=== PATIENT | female | born 2000 | race Caucasian/White ===

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

== ENCOUNTER → 2022-06-04 14:00 | Outpatient (BNVA) | payer MEDICAID, SELFPAY | PROVIDERS: PCP Family Medicine; Visit Provider Emergency Medicine | DX: J06.9 Acute upper respiratory infection, unspecified (principal); U07.1 COVID-19 | CPT/HCPCS: 87426 ==

== ENCOUNTER 2022-07-21 16:23 | Emergency (ER) | payer MEDICAID, SELFPAY ==
[2022-07-21 16:28] VITALS: BP 121/62; PULSE 83; RESP 21; TEMP 36.4; O2SAT 96; BMI 25.2
--- NOTE | 2022-07-21 16:41 | CTR_ITS ---
PROCEDURE INFORMATION: Exam: CT Abdomen And Pelvis With Contrast Exam date and time: 07/21/2022 5:59 PM Age: 22 years old Clinical indication: Abdominal pain; Additional info: Abd pain TECHNIQUE: Imaging protocol: Computed tomography of the abdomen and pelvis with contrast. Axial, coronal and sagittal reformatted images were created and reviewed. Radiation optimization: All CT scans at this facility use at least one of these dose optimization techniques: automated exposure control; mA and/or kV adjustment per patient size (includes targeted exams where dose is matched to clinical indication); or iterative reconstruction. Contrast material: OMNIPAQUE 350; Contrast volume: 80 ml; Contrast route: INTRAVENOUS (IV); COMPARISON: CT abdomen pelvis w con* [id number] 09/21/2021 3:33 PM RADIATION DOSE METRICS: Total DLP (mGy-cm): 426.72 FINDINGS: Liver: Unremarkable. Gallbladder and bile ducts: No radiodense gallstones. No biliary ductal dilatation. Pancreas: Unremarkable. Spleen: Unremarkable. Adrenal glands: Normal. No mass. Kidneys and ureters: No mass. No radiodense calculi. No hydronephrosis. Stomach and bowel: No bowel wall thickening. No obstruction. No pneumatosis. Appendix: Normal. Intraperitoneal space: Small amount of mildly complex free pelvic fluid, possibly blood products. No organized fluid collection. No free air. Vasculature: Unremarkable. No aneurysm. Lymph nodes: No pathologically enlarged lymph nodes. Urinary bladder: Unremarkable as visualized. Reproductive: 3.6 x 3.2 cm right adnexal cystic lesion. Bones/joints: No acute osseous abnormality. Soft tissues: Unremarkable. CT/CT abdomen pelvis w con* [id number] IMPRESSION: 1. 3.6 x 3.2 cm right adnexal cystic lesion with a small amount of mildly complex free pelvic fluid, possibly blood products. A ruptured hemorrhagic cyst could produce this appearance. If clinically indicated, pelvic ultrasound may be obtained for further evaluation. 2. Additional findings, as above.
--- NOTE | 2022-07-21 16:43 | W.ED.ABDPA2 ---
HPI - Abdominal Pain General: Chief Complaint: Abdominal Pain Stated Complaint: Sharp pains lower abd Time Seen by Provider: 07/21/22 16:27 Source: patient Mode of arrival: ambulatory Limitations: no limitations History of Present Illness: 22-year-old female states she had sudden onset of right lower quadrant abdominal pain roughly 30 minutes to an hour ago states it severe in nature rates it an 8 out of 10 has some nausea denies any vomiting. She has a history of endometriosis denies any surgical history in the past. She has had no diarrhea denies any vaginal discharge. Associated Symptoms: Denies chills, dysuria and fever(s) Review of Systems Const: Denies: fever(s), chills, body aches or change in appetite Eyes: Denies: blurry vision or eye discomfort ENMT: Denies: throat pain or dental pain Card: Denies: chest pain Resp: Denies: dyspnea GI: Reports: abdominal pain : Denies: dysuria Musc: Denies: neck pain or back pain Skin/Breast: Denies: rash Neuro: Denies: headache(s) Psych: Denies: depression Dominguez/Lymph: Denies: easy bruising All/Imm: Denies: urticaria PFSH ED PFSH: Medical History (Updated 07/21/22 @ 18:56 by Sofía Treadwell MD) Acne vulgaris Surgical History No pertinent past surgical history Family History Family/Other Colon cancer Maternal Aunt Diabetes Paternal and Maternal aunts and uncles Grandmother Cervical cancer Maternal Mother Cervical cancer Thyroid disease Grandfather Hypertension Maternal Thyroid disease Paternal Grandfather Thyroid disease Maternal Denies family history of CAD (coronary artery disease) Clotting disorder Hyperlipidemia Chronic kidney disease (CKD) Bleeding disorder Stroke Social History Smoking and tobacco status: current some day smoker Second hand smoke exposure: No Alcohol intake: never Desire information about alcohol rehabilitation?: No Desire information about substance/drug rehabilitation?: No Physical Exam Const: COMMON NORMALS: no acute distress, patient oriented x3 and healthy appearing HENMT: COMMON NORMALS: normocephalic and atraumatic HEAD & SCALP: normocephalic and atraumatic Eye: COMMON NORMALS: Equal, round and reactive pupils present and EOMs intact bilaterally PUPIL: Yes Equal, round and reactive pupils present Neck/C-Spine: COMMON NORMALS: full ROM and supple Chest: COMMONS NORMALS: normal inspection of the chest and normal palpation of entire chest wall Resp: COMMON NORMALS: normal respiratory effort, No retractions, No use of accessory muscles and clear to auscultation bilaterally AUSCULTATION: clear to auscultation bilaterally Cardio: COMMON NORMALS: regular rate, regular rhythm and No murmurs present (Cardio) RATE: regular rate RHYTHM: regular rhythm GI: COMMON NORMALS: Normal to inspection, nondistended, normoactive bowel sounds present, Soft to palpation and no masses PALPATION: Yes Soft to palpation and Yes Tenderness to palpation present (GI) Details: RLQ Extremity: COMMON NORMALS: normal to inspection and full ROM Neuro: COMMON NORMALS: patient oriented x3, moves all extremities and no focal motor deficits Psych: COMMON NORMALS: mental status grossly normal, Normal thought process present and cooperative THOUGHT PROCESS: Normal thought process present Skin: COMMON NORMALS: no rashes or lesions noted and no wounds GENERAL SKIN EXAM: no rashes or lesions noted Course Vital Signs: Vital signs: Vital Signs Temperature 97.6 F 07/21/22 16:28 Pulse Rate 64 07/21/22 18:25 Respiratory Rate 15 07/21/22 18:39 Blood Pressure 129/68 07/21/22 18:25 Pulse Oximetry 97 07/21/22 18:39 Oxygen Delivery Me thod 07/21/22 18:25 MDM - Abdominal Pain Medical Decision Making Patient presents here with abdominal pain she does have a ruptured ovarian cyst her blood count here is normal her pain is much improved she has no signs of torsion we will get her OB follow-up she is return to the ER if she has worsening pain she understands agrees to plan. Lab Data : 07/21/22 17:00 07/21/22 17:00 Labs/Radiology: Radiology Impressions Abdomen/Pelvis CT 07/21/22 16:41 IMPRESSION: 1. 3.6 x 3.2 cm right adnexal cystic lesion with a small amount of mildly complex free pelvic fluid, possibly blood products. A ruptured hemorrhagic cyst could produce this appearance. If clinically indicated, pelvic ultrasound may be obtained for further evaluation. 2. Additional findings, as above. Laboratory Results WBC 6.9 10^3/uL (4.5-13.0) 07/21/22 17:00 RBC 4.47 10^6/uL (4.1-5.3) 07/21/22 17:00 Hgb 13.5 g/dL (11.5-15.3) 07/21/22 17:00 Hct 40.9 % (37.0-47.0) 07/21/22 17:00 MCV 91.5 fl (81-99) 07/21/22 17:00 MCH 30.2 pg (28.0-34.0) 07/21/22 17:00 MCHC 33.0 g/dL (30.0-36.0) 07/21/22 17:00 RDW 11.4 % (12.1-15.1) L 07/21/22 17:00 Plt Count 251 10^3/cmm (130-400) 07/21/22 17:00 MPV 8.8 fL (7.4-10.4) 07/21/22 17:00 Neut % (Auto) 55.4 % 07/21/22 17:00 Lymph % (Auto) 36.2 % 07/21/22 17:00 Dare % (Auto) 6.7 % 07/21/22 17:00 Eos % (Auto) 1.3 % 07/21/22 17:00 Baso % (Auto) 0.3 % 07/21/22 17:00 Neut # (Auto) 3.81 10^3/uL (1.8-8.0) 07/21/22 17:00 Lymph # (Auto) 2.5 10^3/uL (1.5-6.5) 07/21/22 17:00 Dare # (Auto) 0.5 10^3/uL (0.2-0.9) 07/21/22 17:00 Eos # (Auto) 0.1 10^3/uL (0.0-0.8) 07/21/22 17:00 Baso # (Auto) 0.0 10^3/uL (0.0-0.1) 07/21/22 17:00 Nucleated RBC % (auto) 0 % 07/21/22 17:00 Nucleated RBCs # 0.0 /100WBC 07/21/22 17:00 Sodium 136 mmol/L (136-145) 07/21/22 17:00 Potassium 3.7 mmol/L (3.5-5.1) 07/21/22 17:00 Chloride 102 mmol/L (98-107) 07/21/22 17:00 Carbon Dioxide 23 mmol/L (22-29) 07/21/22 17:00 Anion Gap 14.7 (5-19) 07/21/22 17:00 BUN 12 mg/dL (6-20) 07/21/22 17:00 Creatinine 0.6 mg/dL (0.5-0.9) 07/21/22 17:00 GFR Calculation 127.5 mL/min (90-130) 07/21/22 17:00 Glucose 92 mg/dL (65-115) 07/21/22 17:00 Calculated Osmolality 281 mOsm/kg (285-295) L 07/21/22 17:00 Calcium 9.5 mg/dL (8.5-10.5) 07/21/22 17:00 Total Bilirubin 0.3 mg/dL (0.15-1.2) 07/21/22 17:00 AST 19 U/L (0-32) 07/21/22 17:00 ALT 25 U/L (0-33) 07/21/22 17:00 Alkaline Phosphatase 80 U/L (35-105) 07/21/22 17:00 Total Protein 7.0 g/dL (6.6-8.7) 07/21/22 17:00 Albumin 4.3 g/dL (3.5-5.2) 07/21/22 17:00 Globulin 2.7 g/dL (1.3-4.6) 07/21/22 17:00 Lipase 30 U/L (13-60) 07/21/22 17:00 HCG, Qual Negative (Negative) 07/21/22 17:00 Urine Color Yellow (Yellow) 07/21/22 17:00 Urine Appearance Clear (CLEAR) 07/21/22 17:00 Urine pH 6.0 (5-7) 07/21/22 17:00 Ur Specific [place] 1.025 (1.005-1.030) 07/21/22 17:00 Urine Protein Negative (Negative) 07/21/22 17:00 Urine Glucose (UA) Negative (Normal) 07/21/22 17:00 Urine Ketones Trace (Negative) A 07/21/22 17:00 Urine Blood Negative (Negative) 07/21/22 17:00 Urine Nitrate Negative 07/21/22 17:00 Urine Bilirubin Negative (Negative) 07/21/22 17:00 Urine Urobilinogen 0.2 mg/dL (Negative) 07/21/22 17:00 Ur Leukocyte Esterase Negative (Negative) 07/21/22 17:00 Discharge Plan Discharge Patient Disposition: Home Clinical Impression: Rupture of cyst of right ovary Condition: Stable Prescriptions: New hydrocodone-acetaminophen 5-325 mg tablet 1 tab PO Q6H PRN (Reason: pain) Qty: 14 0RF ondansetron 4 mg tablet,disintegrating 4 mg PO Q6H PRN (Reason: nausea and vomiting) Qty: 14 0RF No Action naproxen 500 mg tablet 500 mg PO BID Qty: 30 0RF pantoprazole 40 mg tablet,delayed release (DR/EC) 40 mg PO DAILY Qty: 90 2RF Discharge Orders: Discharge ED (Routine); Ordered 07/21/22 Ordered By: Sofía Treadwell Referrals: Grace Ochoa DO [Primary Care Provider] - Geena Garcia MD [Physician] - 1-3 days Discharge Diet: Advance as tolerated Discharge Activity: Resume usual activity Patient Instructions: Ruptured Ovarian Cyst (ED), Opioid Safety Coding Level of Care Code ED Manager Secondary for Chg Fwd Exam Comprehensive
[2022-07-21 17:04] VITALS: RESP 15; O2SAT 98
[2022-07-21] MEDS: HYDROmorphone 1 mg/mL INJ 1 mL 0.5 MG IVP (17:04)
[2022-07-21] MEDS: ondansetron 2 mg/ML SDV 2 mL 4 MG IVP (17:05)
[2022-07-21 17:21] LABS: Basophils % 0.3 %; Eosinophils # 0.1 10^3/uL (0.0-0.8); Eosinophils % 1.3 %; Hematocrit 40.9 % (37.0-47.0); Hemoglobin 13.5 g/dL (11.5-15.3); Lymphocytes # 2.5 10^3/uL (1.5-6.5); Lymphocytes % 36.2 %; Mean Corpuscular Hemoglobin 30.2 pg (28.0-34.0); Mean Corpuscular Volume 91.5 fl (81-99); Mean Platelet Volume 8.8 fL (7.4-10.4); Monocytes # 0.5 10^3/uL (0.2-0.9); Monocytes % 6.7 %; Neutrophils # 3.81 10^3/uL (1.8-8.0); Neutrophils % 55.4 %; Nucleated Red Blood Cells % 0 %; Platelet Count 251 10^3/cmm (130-400); Red Blood Count 4.47 10^6/uL (4.1-5.3); Red Cell Distribution Width 11.4 % (12.1-15.1); White Blood Count 6.9 10^3/uL (4.5-13.0)
[2022-07-21 17:37] LABS: HCG Qualitative Urine. Negative (Negative)
[2022-07-21 17:41] LABS: Alanine Aminotransferase 25 U/L (0-33); Albumin Level 4.3 g/dL (3.5-5.2); Alkaline Phosphatase 80 U/L (35-105); Anion Gap 14.7 (5-19); Aspartate Amino Transferase 19 U/L (0-32); Blood Urea Nitrogen 12 mg/dL (6-20); Calcium 9.5 mg/dL (8.5-10.5); Carbon Dioxide 23 mmol/L (22-29); Chloride 102 mmol/L (98-107); Globulin 2.7 g/dL (1.3-4.6); Glomerular Filtration Rate 127.5 mL/min (90-130); Glucose 92 mg/dL (65-115); Lipase 30 U/L (13-60); Osmolality Calculated 281 mOsm/kg (285-295); Potassium 3.7 mmol/L (3.5-5.1); Sodium 136 mmol/L (136-145); Total Bilirubin 0.3 mg/dL (0.15-1.2)
[2022-07-21 17:45] LABS: Add Urine Microscopic? NO; Charge for UA Resulting for Rev
[2022-07-21 17:48] LABS: Bilirubin Urine Negative (Negative); Blood Urine Negative (Negative); Glucose Urine UA Negative (Normal); Ketones Urine Trace (Negative); Leukocyte Esterase Urine Negative (Negative); Nitrate Urine Negative; Protein Urine Negative (Negative); Specific Gravity, Urine 1.025 (1.005-1.030); Urine Appearance Clear (CLEAR); Urine Color Yellow (Yellow); Urobilinogen Urine 0.2 mg/dL (Negative)
[2022-07-21] MEDS: iohexol 350 mg/mL 100 mL Btl IV (18:04)
[2022-07-21 18:25] VITALS: BP 129/68; PULSE 64; RESP 15; O2SAT 100
[2022-07-21 18:39] VITALS: RESP 15; O2SAT 97
[2022-07-21] MEDS: HYDROmorphone 1 mg/mL INJ 1 mL IVP (18:39)
[2022-07-21 19:35] VITALS: BP 115/57; PULSE 60; RESP 15; TEMP 36.6; O2SAT 99
[2022-07-21] MEDS: ondansetron 4 MG Tablet PO (19:51)
--- NOTE | 2022-07-21 19:53 | PC.NURSE ---
patient given po zofran prior to dc
--- NOTE | 2022-07-22 14:03 | DCPLANNER ---
Addendum entered by Chelita Nicholson 10/09/22 11:39: Patient had a follow up appointment scheduled with [facility] - patient did attend appointment Addendum entered by Chelita Nicholson 07/23/22 06:08: Patient has a follow up appointment scheduled for Friday, September 04, 2022 at 11:00 with Grace Childs at [facility]. Clinic will call patient with appointment information. Original Note: surgery manager had message to schedule a follow up appointment for patient with [facility]. surgery manager sent patients information to the front office staff [facility]. Patients information will be printed and reviewed. Clinic will call patient with appointment information.
== END 2022-07-21 19:53 | disposition home or self-care (01) ==
PROVIDERS: Emergency Provider Emergency Medicine; PCP Family Medicine
DX: N83.201 Unspecified ovarian cyst, right side (principal); K66.1 Hemoperitoneum; F17.200 Nicotine dependence, unspecified, uncomplicated
CPT/HCPCS: 74177; 80053; 81003; 81025; 83690; 85025; 96374; 96375; 96376; 99285; J1170; J2405; Q0162; Q9967

== ENCOUNTER → 2022-09-26 10:51 | Outpatient (BNVA) | payer MEDICAID, SELFPAY | PROVIDERS: PCP Family Medicine; Visit Provider Obstetrics & Gynecology | DX: R10.2 Pelvic and perineal pain (principal) | CPT/HCPCS: 76830 ==

== ENCOUNTER 2023-07-16 12:05 | Outpatient (CLI) | payer OTHER, SELFPAY ==
--- NOTE | 2023-07-16 12:19 | XRR_ITS ---
PROCEDURE INFORMATION: Exam: XR Abdomen Exam date and time: 07/16/2023 12:22 PM Age: 23 years old Clinical indication: Abdominal pain; Generalized; Patient HX: Low back pain posteriorly, checking for kidney stones; Additional info: R10.9 - unspecified abdominal pain TECHNIQUE: Imaging protocol: Radiologic exam of the abdomen. Views: Frontal supine view of the abdomen. 1 View. COMPARISON: CT abdomen pelvis w con* [id number] 07/21/2022 5:59 PM FINDINGS: Gastrointestinal tract: Normal. No bowel dilation. Bones/joints: Unremarkable. XR/XR KUB [id number] IMPRESSION: No acute findings.
== END 2023-07-16 12:06 | disposition home or self-care (01) ==
PROVIDERS: PCP Family Medicine; Visit Provider Nurse Practitioner Family
DX: N39.0 Urinary tract infection, site not specified (principal); R10.9 Unspecified abdominal pain
CPT/HCPCS: 74018; 81000; 81025

== ENCOUNTER → 2023-08-01 11:00 | Outpatient (BNVA) | payer OTHER, SELFPAY | PROVIDERS: PCP Family Medicine; Visit Provider Family Medicine | DX: R10.2 Pelvic and perineal pain (principal); G89.29 Other chronic pain; F41.1 Generalized anxiety disorder; G43.009 Migraine without aura, not intractable, without status migrainosus; K21.9 Gastro-esophageal reflux disease without esophagitis; N97.9 Female infertility, unspecified | CPT/HCPCS: 80053; 82941; 85025 ==

== ENCOUNTER 2023-08-13 08:13 | Day surgery (SDC) | payer OTHER, SELFPAY ==
[2023-08-13 08:23] VITALS: BMI 24.2
[2023-08-13 08:29] VITALS: BP 131/76; PULSE 58; RESP 18; TEMP 36.7; O2SAT 97
[2023-08-13] MEDS: sodium chloride 0.9% 1,000 ML 30 ML IV (08:35)
[2023-08-13 08:38] LABS: OR HCG Qualitative Urine Negative (Negative)
--- NOTE | 2023-08-13 09:05 | ANES.PREANE2 ---
Pre-Anesthetic Assessment Height/Weight: Height 1.68 m Weight 68.039 kg Temp Pulse Resp BP Pulse Ox O2 Del Method 98.0 F 58 L 18 131/76 97 Room Air 08/13/23 08:29 08/13/23 08:29 08/13/23 08:29 08/13/23 08:29 08/13/23 08:29 08/13/23 08:29 Preop Diagnosis: abdominal pain Operation Date: 08/13/23 09:15 Proposed Procedures p [id number] egd [id number] colon G0121 screen colon A risk K21.,R10.9,K52.9(Not Applicable) - Heriberto Bojorquez DO s Colonoscopy(Not Applicable) - Heriberto Bojorquez DO Familial anesthetic complications: long time waking up Was Beta Lety taken within 24 hours: N/A Was Clonidine taken within 24 hours: N/A Last intake: Intake Last Liquid Date 08/12/23 Last Liquid Time 22:00 Last Solid Date 08/11/23 Last Solid Time 09:00 Social No alcohol and No tobacco Exam alert, oriented x 3, clear to auscultation bilaterally and regular rate & rhythm Airway Submandibular: within normal limits Cervical ROM: within normal limits Mallampati: Class II Dentition: full Pulmonary Asthma (inhaler as needed haven't used in a month) CV/HEM None reported None reported Hepatic None reported GI Gastroesophageal Reflux Disease (meds help but not controlled) Metabolic None reported Musc/skel Lower Back Pain Neuropsych Anxiety, Depression and Headache Anesthetic Plan ASA status: 2 Anesthesia: MAC Medications/Allergies Home Medications Medication Instructions Recorded Confirmed Last Taken Type albuterol sulfate 90 mcg/actuation 2 puff inhalation QID #8.5 grams 03/14/23 08/11/23 08/12/23 Rx aerosol inhaler (Ventolin HFA) buspirone 5 mg tablet 5 mg PO TID PRN Anxiety 07/31/23 08/13/23 1 Month Ago History ~07/14/23 montelukast 10 mg tablet 10 mg PO DAILY #30 tabs 07/31/23 08/11/23 08/12/23 Rx (Singulair) venlafaxine 37.5 mg 37.5 mg PO DAILY #30 caps 07/31/23 08/11/23 08/12/23 Rx capsule,extended release 24 hr pantoprazole 40 mg tablet,delayed 40 mg PO BID 6 weeks #84 tabs 08/06/23 08/11/23 08/12/23 Rx release (Protonix) Allergies Allergy/AdvReac Type Severity Reaction Status Date / Time No Known Allergies Allergy Verified 08/13/23 08:22 Current Medications Generic Name Dose Route Start Last Admin Trade Name Emily PRN Reason Stop Dose Admin Sodium Chloride 1,000 mls @ 30 mls/hr 08/13/23 08:30 08/13/23 08:35 Sodium Chloride 0.9% IV 08/14/23 08:29 30 mls/hr .Q24H FABRICE Administration PFSH Anesthesia Medical History Acne vulgaris GERD without esophagitis Migraine headache without aura No pertinent past medical history neghx: htn,dm,thyroid,dvt/pe PCP: Dr. Ochoa Pain in female pelvis not diagnosed with surgery--- suspected by Iván. Surgical History No pertinent past surgical history Family History Family/Other Colon cancer Maternal Aunt-- dx age 61 Diabetes Paternal and Maternal aunts and uncles Breast cancer Maternal cousin--dx age 58 Cervical cancer Maternal Aunt--dx age 60's Grandmother Breast cancer Paternal--dx age 64 Mother Thyroid disease Grandfather Hypertension Maternal Thyroid disease Paternal Grandfather Thyroid disease Maternal Hyperlipidemia Maternal Denies family history of Uterine cancer Stroke Social History Smoking and tobacco/nicotine status: current every day tobacco/nicotine user e-cigarettes E-Cigarette Details: vaporizer device and with nicotine Second hand smoke exposure: No Alcohol intake: current Alcohol intake frequency: holidays/special occasions only Substance/Drug Use: current Substance/Drug use frequency: few times a month Adopted: No Caregiver/support person: No Lives independently: Yes Housing: House Marital status: Single Number of children: 0 Highest education level completed: Some College, No Degree service: No Current occupational status: employed Current occupational exposures/hazards: No Pets and animals: No Sexually active: Yes Do you think of yourself as: Straight/Heterosexual Current gender identity: Female Female Reproductive History Spontaneous abortions: No Data Anesthesia Cardiac Studies: No Data to Display
--- NOTE | 2023-08-13 09:29 | W.PM.OPSUD ---
Surgery/Procedure H&P Update DATE OF PROCEDURE: August 13, 2023 DATE H&P PERFORMED: 08/06/23 H&P UPDATE INFORMATION: I have reviewed H&P completed within last 30 days, I have examined patient prior to procedure and No changes to prior documentation PREOP DIAGNOSIS: abdominal pain PLANNED PROCEDURE: Operation Date: 08/13/23 09:15 Proposed Procedures p [id number] egd 52209 colon G0121 screen colon A risk K21.,R10.9,K52.9(Not Applicable) - DO librado Menezes Colonoscopy(Not Applicable) - Heriberto Bojorquez DO
[2023-08-13 09:54] VITALS: BP 110/65; PULSE 50; RESP 12; TEMP 36.2; O2SAT 96
[2023-08-13 10:04] VITALS: BP 110/68; PULSE 45; RESP 14; O2SAT 97
[2023-08-13 10:14] VITALS: BP 131/86; PULSE 49; RESP 16; O2SAT 100
--- NOTE | 2023-08-13 13:31 | ANE.PACU2 ---
Inpatient post-anesthesia follow up: Airway intact: Yes Vital signs: Temperature 97.1 F Pulse Rate 49 Respiratory Rate 16 Blood Pressure 131/86 Pulse Oximetry 100 Oxygen Delivery Me thod Room Air Oxygen Flow Rate 2 Fraction of Inspir ed Oxygen Hydration adequate: Yes Nausea and vomiting: No Pain level: 2 Mental status: Baseline
== END 2023-08-13 10:29 | disposition home or self-care (01) ==
PROVIDERS: Anesthesiology; PCP Family Medicine; Visit Provider Surgery
PROC: 0DJ08ZZ Inspection of Upper Intestinal Tract, Via Natural or Artificial Opening Endoscopic (ICD-10-PCS; CPT 43235; principal; 2023-08-13 09:15)
PROC: 0DJD8ZZ Inspection of Lower Intestinal Tract, Via Natural or Artificial Opening Endoscopic (ICD-10-PCS; CPT 45378; 2023-08-13 09:15)
DX: K52.9 Noninfective gastroenteritis and colitis, unspecified (principal); R63.4 Abnormal weight loss; Z68.24 Body mass index [BMI] 24.0-24.9, adult; K21.9 Gastro-esophageal reflux disease without esophagitis; R10.9 Unspecified abdominal pain; F17.290 Nicotine dependence, other tobacco product, uncomplicated
CPT/HCPCS: 43239; 45380; 81025; 82274; 83630; 84703; 87045; 87177; 87209; 87427; 87449; 87493; 88305; J2704; J7030

== ENCOUNTER 2023-08-15 07:19 | Outpatient (CLI) | payer OTHER, SELFPAY ==
--- NOTE | 2023-08-15 07:30 | US_ITS ---
WS: [id number] RIGHT UPPER QUADRANT ULTRASOUND HISTORY: abdominal pain COMPARISON: None available. Liver: 14.8 cm in length. Normal size liver and echogenicity. No bile duct dilatation or mass. Portal Vein: Normal hepatopetal flow with monophasic waveform. Gallbladder: Normally distended gallbladder with no stones or wall thickening. CBD: 0.4 cm Pancreas: Normal size and echogenicity. Right kidney: 10.7 cm in length. Normal size and echogenicity. No hydronephrosis or mass. Aorta and IVC: Unremarkable abdominal aorta and IVC. No ascites. IMPRESSION: Normal RIGHT upper quadrant ultrasound.
== END 2023-08-15 07:20 | disposition home or self-care (01) ==
LOC: RAD 07:19
PROVIDERS: PCP Family Medicine; Visit Provider Surgery
DX: R10.9 Unspecified abdominal pain (principal)
CPT/HCPCS: 76705

== ENCOUNTER → 2023-09-22 12:19 | Outpatient (BNVA) | payer OTHER, SELFPAY | PROVIDERS: PCP Family Medicine; Visit Provider Obstetrics & Gynecology | DX: R10.2 Pelvic and perineal pain (principal) | CPT/HCPCS: 76830 ==

== ENCOUNTER 2023-09-30 07:51 | Day surgery (SDC) | payer OTHER, SELFPAY ==
[2023-09-26 10:39] LABS: Basophils % 0.5 %; Eosinophils # 0.1 10^3/uL (0.0-0.8); Eosinophils % 2.2 %; Hematocrit 40.2 % (36-47); Lymphocytes # 1.7 10^3/uL (0.8-4.8); Lymphocytes % 45.1 %; Mean Corpuscular HGB Conc 33.6 g/dL (30-55); Mean Corpuscular Hemoglobin 31.3 pg (27-33); Mean Corpuscular Volume 93.1 fl (85-98); Mean Platelet Volume 8.9 fL (7.4-10.4); Monocytes # 0.2 10^3/uL (0.2-0.9); Neutrophils # 1.68 10^3/uL (1.8-7.7); Neutrophils % 45.9 %; Nucleated Red Blood Cells % 0 %; Platelet Count 232 10^3/cmm (157-399); Red Blood Count 4.32 10^6/uL (3.85-5.65); Red Cell Distribution Width 11.2 % (12.1-15.1); White Blood Count 3.66 10^3/uL (3.29-11.43)
[2023-09-26 10:48] LABS: Add Urine Microscopic? YES; Bacteria Urine TRACE /hpf; Bilirubin Urine Neg (Negative); Blood Urine 3+ (Negative); Glucose Urine UA Norm (Normal); Ketones Urine Negative (Negative); Leukocyte Esterase Urine Negative (Negative); Mucus Urine 1+ /hpf; Nitrate Urine Negative (Negative); Protein Urine Neg (Negative); Squamous Epithelial Cell Urine 0-4 /hpf (0-5); Urine Appearance SL Hazy (CLEAR); Urine Color Yellow (Yellow); Urobilinogen Urine Norm (Negative); WBC Urine 0-4 /hpf (0-5); pH Urine 6 (5-7)
[2023-09-26 10:49] LABS: Add Urine Culture? Yes; OR HCG Qualitative Urine Negative (Negative)
[2023-09-26 11:06] LABS: Alanine Aminotransferase 14 U/L (0-33); Albumin Level 4.3 g/dL (3.5-5.2); Alkaline Phosphatase 78 U/L (35-105); Anion Gap 13.8 (5-19); Aspartate Amino Transferase 19 U/L (0-32); Blood Urea Nitrogen 7 mg/dL (6-20); Calcium 9.3 mg/dL (8.5-10.5); Carbon Dioxide 25 mmol/L (22-29); Chloride 104 mmol/L (98-107); Globulin 3.1 g/dL (1.3-4.6); Glomerular Filtration Rate 105.6 mL/min (90-130); Glucose 122 mg/dL (65-115); Osmolality Calculated 287 mOsm/kg (285-295); Potassium 3.8 mmol/L (3.5-5.1); Sodium 139 mmol/L (136-145); Total Bilirubin 0.3 mg/dL (0.15-1.2); Total Protein 7.4 g/dL (6.6-8.7)
--- NOTE | 2023-09-26 13:02 | ANES.PREANE2 ---
Pre-Anesthetic Assessment Height/Weight: Height 1.68 m Operation Date: 09/30/23 12:55 Proposed Procedures p Diagnostic laparoscopy 05600,Diagnostic laparoscopy 74022,N94.6(Not Applicable) - Jose Negron MD Familial anesthetic complications: none Was Beta Lety taken within 24 hours: N/A Was Clonidine taken within 24 hours: N/A Social No alcohol and No tobacco Exam alert, oriented x 3, clear to auscultation bilaterally and regular rate & rhythm Airway Submandibular: within normal limits Cervical ROM: within normal limits Mallampati: Class II Dentition: full Pulmonary Asthma GI Gastroesophageal Reflux Disease Neuropsych Anxiety, Depression and Headache Anesthetic Plan ASA status: 2 Anesthesia: General Medications/Allergies Home Medications Medication Instructions Recorded Confirmed Last Taken Type albuterol sulfate 90 mcg/actuation 2 puff inhalation QID #8.5 grams 03/14/23 09/26/23 08/12/23 Rx aerosol inhaler (Ventolin HFA) buspirone 5 mg tablet 5 mg PO TID PRN Anxiety 07/31/23 09/26/23 09/24/23 History venlafaxine 37.5 mg 37.5 mg PO DAILY #30 caps 07/31/23 09/26/23 09/25/23 Rx capsule,extended release 24 hr pantoprazole 40 mg tablet,delayed 40 mg PO BID 6 weeks #84 tabs 08/06/23 09/26/23 09/25/23 Rx release (Protonix) montelukast 10 mg tablet 10 mg PO DAILY #30 tabs 09/19/23 09/26/23 09/25/23 Rx (Singulair) doxycycline hyclate 100 mg tablet 100 mg PO BID 7 days #14 tabs 09/24/23 09/26/23 09/25/23 Rx Allergies Allergy/AdvReac Type Severity Reaction Status Date / Time No Known Allergies Allergy Verified 09/24/23 14:28 [facility] Anesthesia Medical History Pain in female pelvis not diagnosed with surgery--- suspected by Iván. No pertinent past medical history neghx: htn,dm,thyroid,dvt/pe PCP: Dr. Ochoa GERD without esophagitis Migraine headache without aura Acne vulgaris Surgical History No pertinent past surgical history Family History Family/Other Colon cancer Maternal Aunt-- dx age 61 Diabetes Paternal and Maternal aunts and uncles Breast cancer Maternal cousin--dx age 58 Cervical cancer Maternal Aunt--dx age 60's Grandmother Breast cancer Paternal--dx age 64 Mother Thyroid disease Grandfather Hypertension Maternal Thyroid disease Paternal Grandfather Thyroid disease Maternal Hyperlipidemia Maternal Denies family history of Uterine cancer Stroke Social History Smoking and tobacco/nicotine status: current every day tobacco/nicotine user e-cigarettes E-Cigarette Details: vaporizer device and with nicotine Second hand smoke exposure: No Alcohol intake: current Alcohol intake frequency: holidays/special occasions only Substance/Drug Use: current Substance/Drug use frequency: few times a month Adopted: No Caregiver/support person: No Lives independently: Yes Housing: House Marital status: Single Number of children: 0 Highest education level completed: Some College, No Degree service: No Current occupational status: employed Current occupational exposures/hazards: No Pets and animals: No Sexually active: Yes Do you think of yourself as: Straight/Heterosexual Current gender identity: Female Female Reproductive History Spontaneous abortions: No Data Anesthesia 09/26/23 10:30 09/26/23 10:30 Short CBC 09/26/23 Range/Units 10:30 WBC 3.66 (3.29-11.43) 10^3/uL Hgb 13.50 (11.27-16.99) g/dL Hct 40.2 (36-47) % MCV 93.1 (85-98) fl Plt Count 232 (157-399) 10^3/cmm Neut % (Auto) 45.9 % Neut # (Auto) 1.68 L (1.8-7.7) 10^3/uL BMP 09/26/23 10:30 Sodium 139 Potassium 3.8 Chloride 104 Carbon Dioxide 25 BUN 7 Creatinine 0.7 Glucose 122 H Calcium 9.3 Liver Function 09/26/23 Range/Units 10:30 Total Bilirubin 0.3 (0.15-1.2) mg/dL AST 19 (0-32) U/L ALT 14 (0-33) U/L Alkaline Phosphatase 78 (35-105) U/L Albumin 4.3 (3.5-5.2) g/dL Urine 09/26/23 Range/Units 10:30 Urine Color Yellow (Yellow) Urine Appearance Sl hazy A (CLEAR) Urine pH 6 (5-7) Ur Specific [employer] 1.030 (1.005-1.030) Urine Protein Neg (Negative) Urine Glucose (UA) Norm (Normal) Urine Ketones Negative (Negative) Urine Nitrate Negative (Negative) Urine Bilirubin Neg (Negative) Ur Leukocyte Esterase Negative (Negative) Urine RBC 10-15 H (0-2) /hpf Urine WBC 0-4 H (0-5) /hpf Cardiac Studies: No Data to Display
[2023-09-30] VITALS (11 sets, daily range): BP systolic 88–150; BP diastolic 59–99; PULSE 48–87; RESP 15–18; TEMP 36.1–37; O2SAT 95–100; BMI 24.0
[2023-09-30] MEDS: scopolamine 1.5 Patch 1 PATCH TRANSDERMA (08:17)
[2023-09-30] MEDS: sodium chloride 0.9% 1,000 ML 30 ML IV (08:21)
[2023-09-30 09:37] LABS: OR HCG Qualitative Urine Negative (Negative)
--- NOTE | 2023-09-30 09:56 | P.ANESUD_ITS ---
Pre-Anesthetic Update Pre-Anesthetic Assessment: Date of Surgery/Procedure: 09/30/23 Preop Rona gnosis: pelvic pain, infertility Proposed Procedure: Operation Date: 09/30/23 09:35 Proposed Procedures p Diagnostic laparoscopy 35954,Diagnostic laparoscopy 10865,N94.6(Not Applicable) - Jose Negron MD Any changes to Pre-Anesthetic Assessment?: No Last Intake: Intake Last Liquid Date 09/29/23 Last Liquid Time 22:00 Last Solid Date 09/29/23 Last Solid Time 19:00 Vitals: Temperature 97.8 F 09/30/23 08:10 Temperature Source Temporal Artery S can 09/30/23 08:10 Pulse Rate 48 L 09/30/23 08:10 Respiratory Rate 18 09/30/23 08:10 Blood Pressure 126/81 09/30/23 08:17 Blood Pressure Karuna n 96 09/30/23 08:10 Pulse Oximetry 100 09/30/23 08:10 Oxygen Delivery Me thod Room Air 09/30/23 08:23 Exam: Pre-Anes Outpt Exam: alert, oriented x 3, clear to auscultation bilaterally and regular rate & rhythm Cardiac Studies: No Data to Display
--- NOTE | 2023-09-30 10:32 | W.PM.OPSUD ---
Surgery/Procedure H&P Update DATE OF PROCEDURE: September 30, 2023 DATE H&P PERFORMED: 09/22/23 H&P UPDATE INFORMATION: I have reviewed H&P completed within last 30 days, I have examined patient prior to procedure and No changes to prior documentation PREOP DIAGNOSIS: pelvic pain, infertility PLANNED PROCEDURE: Operation Date: 09/30/23 09:35 Proposed Procedures p Diagnostic laparoscopy 48690,Diagnostic laparoscopy 15565,N94.6(Not Applicable) - Jose Negron MD
[2023-09-30] MEDS: ceFAZolin 2,000 MG in sodium chloride 0.9% (plus) 50 ML 100 MG IV (10:48)
[2023-09-30] MEDS: BUPivacaine 0.5% INJ 10 mL INJECTION (11:32)
--- NOTE | 2023-09-30 11:53 | P.OP_ITS ---
Operative Report Date of procedure: September 30, 2023 Pre-op diagnosis: Pelvic pain Infertility Post-op diagnosis: Same as above Post-op findings: Normal abdominal anatomy String adhesions to left tube Chromotubation: Spillage only noted on the left tube Procedure done: Diagnostic laparoscopy. Lysis of adhesions Specimens removed/disposition: None Pathology: Couple strings adhesions to left fallopian tube Surgeon: Jose Negron MD Estimated blood loss (mL): 5 IV fluids (mL): 100 Urine output (mL): 200 Complications: None Findings: Indigocarmine spillage only on the left fallopian tube. Brief History: 23-year-old female with a history of pelvic pain and infertility. Procedure: DESCRIPTION OF PROCEDURE: After informed consent, the patient was taken to the operating room where general anesthesia was administered. The patient was examined under anesthesia and found to have a normal uterus with normal adnexa. She was placed in the dorsal lithotomy position and prepped and draped in sterile fashion. Pre- Procedure Time-Out verifying the correct patient identity, correct procedure verified with consent, correct site and side, correct patient position, availability of correct implants and any special equipment or requirements was performed and acknowledge by the OR team. A weighted speculum was placed in the vagina, and the anterior lip of cervix was grasped with the single toothed tenaculum. A uterine manipulator was advanced into the endocervical. Tenaculum was removed after uterine manipulator was secured. The speculum was removed from the vagina. An intraumbilical incision was made with a scalpel. While tenting up on the abdomen, a Verres needle with sleeve was admitted into the intra-abdominal cavity. A saline drop test was performed and noted to be within normal limits. Pneumoperitoneum was attained with 4 liters of carbon dioxide. The Verres needle was removed. A 5 mm trocar and sleeve were admitted into the abdomen and laparoscopic confirmation of location was achieved, A second incision was made 3 cm above the symphysis pubis, and a 5 mm trocar and sleeve were admitted into the abdomen under direct, laparoscopic visualization without complication. A survey revealed normal abdominal anatomy. Pelvic survey shows normal uterus, left and right adnexa. A 5 mm blunt probe was advanced through the second trocar sleeve, and light manipulation of ovaries and uterus to assess the posterior aspects was performed. A couple was strings adhesions to the left fallopian tube were noted and lysed. Bludigo was infused through the uterine manipulator. Indigocarmine spillage was only noted on the left fallopian tube. The carbon dioxide was allowed to escape from the abdomen. The instruments were removed, and skin cover with a bandage. The instruments were removed from the vagina, and excellent hemostasis was noted. The patient tolerated the procedure well, and sponge, lap and needle count were correct times two. The patient taken to the recovery room in good condition.
--- NOTE | 2023-09-30 13:23 | PC.NURSE ---
1310 - pt upset. requesting to talk to dr. rosales. states is not leaving until she talks to him. explained that he talked with mom and that he will talk to her on follow up appointment. pt still insisting that she talk with . dr. rosales notified. states he spoke with mother and will speak with pt in office.
[2023-09-30] MEDS: HYDROcodone-acetaminophen 5-325 mg Tablet 1 TAB PO (13:27)
--- NOTE | 2023-09-30 13:33 | PC.NURSE ---
gomez cath discont upon arrival to ops dept. pt up to bathroom . voiding without difficulty. pt states there was a lot of bleeding . pt had flushed toilet.
--- NOTE | 2023-09-30 13:50 | ANE.PACU2 ---
Inpatient post-anesthesia follow up: Airway intact: Yes Vital signs: Temperature 97 F Pulse Rate 78 Respiratory Rate 18 Blood Pressure 136/86 Pulse Oximetry 96 Oxygen Delivery Me thod Room Air Oxygen Flow Rate 6 Fraction of Inspir ed Oxygen Hydration adequate: Yes Nausea and vomiting: No Pain level: 1 Mental status: Baseline
== END 2023-09-30 13:54 | disposition home or self-care (01) ==
PROVIDERS: PCP Family Medicine; Visit Provider Obstetrics & Gynecology
PROC: (CPT 49320; principal; 2023-09-30 09:15)
PROC: 3E0P7KZ Introduction of Other Diagnostic Substance into Female Reproductive, Via Natural or Artificial Opening (ICD-10-PCS; CPT 58350; 2023-09-30 09:15)
DX: R10.2 Pelvic and perineal pain (principal); N97.9 Female infertility, unspecified; K66.0 Peritoneal adhesions (postprocedural) (postinfection); F17.290 Nicotine dependence, other tobacco product, uncomplicated
CPT/HCPCS: 58660; 80053; 81001; 81025; 84703; 85025; 86850; 86900; 87086; J0690; J1100; J1885; J2405; J2704; J2710; J3010; J3490; J7030

== ENCOUNTER → 2024-11-05 09:05 | Outpatient (BNVA) | payer OTHER, SELFPAY | PROVIDERS: PCP Family Medicine; Visit Provider Emergency Medicine | DX: J02.9 Acute pharyngitis, unspecified (principal); J02.0 Streptococcal pharyngitis | CPT/HCPCS: 87071; 87880 ==

== ENCOUNTER → 2024-11-18 11:45 | Outpatient (BNVA) | payer OTHER, SELFPAY | PROVIDERS: PCP Family Medicine; Visit Provider Family Medicine | DX: R53.83 Other fatigue (principal); R10.2 Pelvic and perineal pain; G89.29 Other chronic pain; K21.9 Gastro-esophageal reflux disease without esophagitis; F41.1 Generalized anxiety disorder | CPT/HCPCS: 80053; 80061; 82607; 84439; 84443; 85025 ==

== ENCOUNTER → 2025-02-23 10:03 | Outpatient (BNVA) | payer OTHER, SELFPAY | PROVIDERS: PCP Family Medicine; Visit Provider Nurse Practitioner Women's Health | DX: N91.2 Amenorrhea, unspecified (principal) | CPT/HCPCS: 84702 ==

== ENCOUNTER 2025-06-30 08:20 | Outpatient (CLI) | payer OTHER, SELFPAY ==
--- NOTE | 2025-06-30 08:33 | XRR_ITS ---
PROCEDURE INFORMATION: Exam: XR Right Knee Exam date and time: 06/30/2025 8:45 AM Age: 25 years old Clinical indication: Pain; Knee; Right; Additional info: Acute anteriolateral and posterior pain, a knee with prior soft tissue injury. TECHNIQUE: Imaging protocol: Radiologic exam of the right knee. Views: 3 views. COMPARISON: CR XR knee RT 3V* [id number] 07/12/2021 5:04 PM FINDINGS: Bones/joints: The lateral view demonstrates an 11 mm linear calcific density projecting over the condyles, not identified on AP and oblique views. There is no other evidence for fracture or dislocation. Medial, lateral and patellofemoral joint spaces are otherwise within normal limits. Soft tissues: No other soft tissue abnormalities. XR/XR knee RT 3V* [id number] IMPRESSION: 1. Linear calcific density projecting over the condyles on lateral view only. The structure could represent a calcification in the intercondylar notch which may reflect an avulsion from the tibial spines. Further assessment could include oblique and notch views of the knee, or MRI. 2. No other evidence for acute fracture or dislocation.
== END 2025-06-30 08:21 | disposition home or self-care (01) ==
PROVIDERS: PCP Family Medicine; Visit Provider Emergency Medicine
DX: M25.561 Pain in right knee (principal)
CPT/HCPCS: 73562

== ENCOUNTER → 2025-07-20 08:09 | Outpatient (BNVA) | payer OTHER, SELFPAY | PROVIDERS: PCP Family Medicine; Referring Provider Student in an Organized Health Care Education/Training Program; Visit Provider Physician Assistant | DX: M23.303 Other meniscus derangements, unspecified medial meniscus, right knee (principal); M25.561 Pain in right knee | CPT/HCPCS: 73560; 73565 ==

== ENCOUNTER 2025-07-20 11:05 | Outpatient (CLI) | payer OTHER, SELFPAY | END 2025-07-20 11:06 | disposition home or self-care (01) | LOC: SPT 11:06 | PROVIDERS: PCP Family Medicine; Visit Provider Physician Assistant | DX: Z46.89 Encounter for fitting and adjustment of other specified devices (principal); M23.91 Unspecified internal derangement of right knee | CPT/HCPCS: L1812 ==

== ENCOUNTER 2025-09-22 08:43 | Outpatient (CLI) | payer OTHER, SELFPAY ==
--- NOTE | 2025-09-22 08:45 | MR_ITS ---
WS: [id number] MRI RIGHT KNEE HISTORY: derangement of right knee COMPARISON: 01/19/2019 Anterior cruciate ligament: Intact. Posterior cruciate ligament: Intact. Medial collateral ligament: Intact. Posterior lateral corner structures: Intact. Medial menisci: Intact. Normal signal, size and shape. Lateral meniscus: Intact. Normal signal, size and shape. Extensor mechanism: Distal quadriceps tendon and patellar tendons are intact. Fluid and soft tissue: No joint effusion. No Gifford's cyst. Osseous and articular structures: Patellofemoral compartment: Abnormal appearance of the patellofemoral joint space. Lateral subluxation of the patella. There is a shallow trochlear groove of the femoral condyle. Cartilage is well-preserved although there is more prominent narrowing of the lateral patellofemoral articulation due to the lateral subluxation of the patella. Medial patellar retinaculum is thinned and of intermediate signal from prior injury and healing. Medial compartment: Normal. Lateral compartment: Normal. MR/MR knee RT wo con* [id number] IMPRESSION: 1. No meniscal or ACL tear. 2. 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 Increased TT -TG distance. 3. Mild atrophy and intermediate signal throughout the medial patellar retinac ulum from prior injury with healing. No acute tear.
== END 2025-09-22 08:44 | disposition home or self-care (01) ==
LOC: RAD 08:43
PROVIDERS: PCP Family Medicine; Visit Provider Physician Assistant
DX: M23.305 Other meniscus derangements, unspecified medial meniscus, unspecified knee (principal)
CPT/HCPCS: 73721

== ENCOUNTER 2025-10-11 09:58 | Outpatient (CLI) | payer OTHER, SELFPAY ==
--- NOTE | 2025-10-11 10:00 | CT_ITS ---
WS: [id number] CT RIGHT KNEE, NONCONTRAST HISTORY: evaluate TT-TG distance, multiple injuries, patellar instability. Technique: All CT scans at [facility] use at least one of these dose optimization techniques: automated exposure control; mA and/or kV adjustment per patient size (includes targeted exams where dose is matched to clinical indication); or iterative reconstruction. DLP: 437.47 mGy.cm COMPARISON: MRI 09/22/2025 Lateral subluxation of the patella. Shallow trochlear groove. No fractures identified. No osteochondral lesions. There is a small 10 x 2 mm osseous or calcific density adjacent to the medial femoral condyle which could be from an avulsion fracture. No soft tissue abnormalities. No joint effusion. Trochlear inclination angle is estimated at 5 degrees which is abnormal. TT - TG distance: 17.[address]/CT knee RT wo con* [id number] IMPRESSION: Moderate lateral subluxation of the patella. Shallow trochlear angle. TT-TG distance: 17.5 mm.
== END 2025-10-11 09:59 | disposition home or self-care (01) ==
LOC: RAD 09:59
PROVIDERS: PCP Family Medicine; Visit Provider Student in an Organized Health Care Education/Training Program
DX: M23.000 Cystic meniscus, unspecified lateral meniscus, right knee (principal); S83.011A Lateral subluxation of right patella, initial encounter; X58.XXXA Exposure to other specified factors, initial encounter; M22.8X1 Other disorders of patella, right knee
CPT/HCPCS: 73700

== ENCOUNTER → 2025-10-12 13:48 | Outpatient (BNVA) | payer OTHER, SELFPAY | PROVIDERS: PCP Family Medicine | DX: R52 Pain, unspecified (principal) | CPT/HCPCS: 87400; 87426 ==